=== PATIENT | female | born 1995 | race Caucasian/White ===

== ENCOUNTER → 2021-10-04 | Outpatient (CLI) | payer OTHER | LOC: KOH-I 12:03 | DX: R05.9 Cough, unspecified (principal); M54.2 Cervicalgia; M54.9 Dorsalgia, unspecified; M47.817 Spondylosis without myelopathy or radiculopathy, lumbosacral region; M47.812 Spondylosis without myelopathy or radiculopathy, cervical region | CPT/HCPCS: 71046; 72040; 72070; 72100 ==